=== PATIENT | male | born 1940 | race Caucasian/White ===

== ENCOUNTER → 2018-03-09 | Outpatient (CLI) | payer SELFPAY ==
--- NOTE | 2018-03-10 08:04 | PCVCIMAG ---
APPROVED REPORT Study performed: 03/09/2018 14:34:59 EXAM: Comprehensive 2D, Doppler, and color-flow Echocardiogram Patient Location: Echo lab Status: routine BSA: 2.17 HR: 55 bpmBP: 158/82 mmHg Rhythm: NSR Other Information Study Quality: Adequate Technically limited study due to body habitus. Risk Factors: Cardiac Risk Factors: DM, HTN Indications CLINICAL RESEARCH STUDY 2D Dimensions IVSd: 16.27 (7-11mm)LVOT Diam: 20.00 (18-24mm) LVDd: 33.13 mm PWd: 12.26 (7-11mm)Ascending Ao: 34.33 (22-36mm) LVDs: 20.10 (25-40mm) Left Atrium: 41.00 (27-40mm) Aortic Root: 35.67 mm LV Single Plane 4CH: 59.75 % LV Single Plane 2CH: 54.39 % Biplane EF: 56.8 % Volumes Left Atrial Volume (Systole) Single Plane 4CH: 77.35 mLSingle Plane 2CH: 44.00 mL LA ESV Index: 28.00 mL/m2 Aortic Valve AoV Peak Corey.: 2.25 m/s AO Peak Gr.: 20.16 mmHgLVOT Max P.89 mmHg AO Mean Gr.: 12.17 mmHgLVOT Mean P.92 mmHg AO V2 Mean: 1.71 m/sLVOT Max V: 1.11 m/s AO V2 VTI: 55.53 cmLVOT Mean V: 0.82 m/s SEYMOUR (VTI): 1.65 [id number] V1 VTI: 27.95 cm SEYMOUR Vmax: 1.62 cm2 SV (LVOT): 91.85 mL Mitral Valve E/A Ratio: 0.8 MV Decel. Time: 290.70 ms MV E Max Corey.: 0.90 m/s MV A Corey.: 1.13 m/s IVRT: 89.97 ms TDI E/Lateral E': 15.00E/Medial E': 22.50 Medial E' Corey.: 0.04 m/s Lateral E' Corey.: 0.06 m/s Pulmonary Valve PV Peak Corey.: 0.96 m/sPV Peak Gr.: 3.68 mmHg Pulmonary Vein P Vein S: 0.48 m/sP Vein A: 0.23 m/s P Vein D: 0.44 m/sP Vein A Dur.: 114.2 msec P Vein S/D Ratio: 1.09 Tricuspid Valve TR Peak Corey.: 2.35 m/sRAP Estimate: 7.00 mmHg TR Peak Gr.: 22.13 mmHg PA Pressure: 29.00 mmHg Left Ventricle The left ventricle is normal size. There is normal LV segmental wall motion. Mild-moderate concentric left ventricular hypertrophy. Left ventricular systolic function is normal. The left ventricular ejection fraction is within the normal range. LVEF is 55-60%. Grade I - abnormal relaxation pattern. Right Ventricle The right ventricle is normal size. The right ventricular systolic function is normal. Atria The left atrium size is normal. The right atrium size is normal. Aortic Valve The aortic valve is moderately calcified No aortic regurgitation is present. There is mild aortic stenosis. Calculated aortic valve area is 1.7 cm2 with maximum pressure gradient of 17 mmHg and mean pressure gradient of 12 mmHg. Mitral Valve Mild mitral annular calcification. Trace mitral regurgitation. No evidence of mitral valve stenosis. Tricuspid Valve The tricuspid valve is normal in structure. Trace tricuspid regurgitation. Pulmonary artery pressure is 30 mmHg. Pulmonic Valve The pulmonary valve is normal in structure. There is no pulmonic valvular regurgitation. Great Vessels The aortic root is normal in size. IVC is normal in size and collapses >50% with inspiration. Pericardium There is no pericardial effusion. <Conclusion> Left ventricular systolic function is normal. Mild-moderate concentric left ventricular hypertrophy. There is normal LV segmental wall motion. Mild diastolic dysfunction The aortic valve is moderately calcified, mild aortic stenosis, no insufficiency. Calculated aortic valve area is 1.7 cm2 with maximum pressure gradient of 17 mmHg and mean pressure gradient of 12 mmHg. Mild mitral annular calcification. Trace mitral regurgitation. Trace tricuspid regurgitation. Pulmonary artery pressure of 30 mmHg. There is no pericardial effusion.
== END | disposition home or self-care (01) ==
LOC: PCVCIMAG 14:09
PROVIDERS: ATTEND Internal Medicine Nephrology
DX: I35.0 Nonrheumatic aortic (valve) stenosis (principal); I10 Essential (primary) hypertension; E11.9 Type 2 diabetes mellitus without complications
CPT/HCPCS: 93306